=== PATIENT | male | born 1960 | race American Indian/Alaskan Native ===

== ENCOUNTER 2016-08-16 14:47 | Emergency (ER) | payer MEDICAID ==
[2016-08-16 15:24] LABS: Hematocrit 26.3 % (35.5-45.6); Hemoglobin 8.4 gm/dl (11.8-15.2); Mean Corpuscular HGB Conc 32 % (32-34); Mean Corpuscular Hemoglobin 26 pg (28-32); Mean Corpuscular Volume 82 fl (84-94); Platelet Count 137 K/mm3 (140-440); Red Blood Count 3.22 M/mm3 (3.65-5.03); White Blood Count 5.6 K/mm3 (4.5-11.0)
[2016-08-16 15:34] LABS: Red Cell Distribution Width 29.3 % (13.2-15.2)
[2016-08-16 15:44] LABS: Alanine Aminotransferase 37 units/L (7-56); Albumin 2.2 g/dL (3.9-5); Albumin/Globulin Ratio 0.4 %; Alkaline Phosphatase 136 units/L (35-129); Anion Gap 16 mmol/L; BUN/Creatinine Ratio 21.11; Blood Urea Nitrogen 19 mg/dL (9-20); Calcium 9.2 mg/dL (8.4-10.2); Carbon Dioxide 22 mmol/L (22-30); Glucose 98 mg/dL (75-100); Potassium 3.9 mmol/L (3.6-5.0); Sodium 134 mmol/L (137-145)
--- NOTE | 2016-08-16 15:49 | XRay Report ---
PORTABLE CHEST INDICATION: Hemoptysis. COMPARISON: None similar at this institution. FINDINGS: Portable, frontal chest radiograph demonstrates an asymmetric 1.3 cm nodular density at the left lung base projecting near the cardiac apex, not excluded for a lung nodule/mass, though may conceivably be a nipple shadow. However, another 1.3 cm right perihilar and a 0.6 cm left midlung nodular densities also suspected. Normal cardiomediastinal silhouette. No pleural effusions or CHF. Intact bones. CONCLUSION: Bilateral pulmonary nodules suspected, worrisome for metastatic disease. Please also correlate clinically, with prior chest imaging if available or further with chest CT, as warranted. Thank you for the opportunity to participate in this patient's care.
[2016-08-16 16:03] LABS: INR 1.28 (0.87-1.13)
[2016-08-16 16:04] LABS: Partial Thromboplastin Time 35.1 Sec. (24.2-36.6)
--- NOTE | 2016-08-16 16:26 | Emergency Department Report ---
ED General Adult HPI - General Chief complaint: Dyspnea/Respdistress Stated complaint: COUGHING UP BLOOD Time Seen by Provider: 08/16/16 15:06 Source: patient, EMS Mode of arrival: Stretcher Limitations: No Limitations - History of Present Illness Initial comments: 56-year-old male presents to the emergency department via EMS complaining of coughing up blood. Patient states he's been coughing up blood for approximately one month. He states he was recently diagnosed with throat cancer , but has not followed up. He states that he would like treatment at this time. He denies difficulty breathing. He also denies chest pain. There are no other complaints. -: Gradual, month(s) (1) Severity scale (0 -10): 0 Consistency: constant Improves with: none Worsens with: none Associated Symptoms: denies other symptoms - Related Data Allergies Allergy/AdvReac Type Severity Reaction Status Date / Time No Known Allergies Allergy Verified 08/16/16 14:59 ED Review of Systems ROS: Stated complaint: COUGHING UP BLOOD Other details as noted in HPI Comment: All other systems reviewed and negative Respiratory: cough, other (hemoptysis) ED Past Medical Hx - Past Medical History Previous Medical History?: Yes Hx Hypertension: Yes Hx Liver Disease: Yes (cirrhosis) Hx of Cancer: Yes (throat) - Surgical History Past Surgical History?: Yes Additional Surgical History: spine - Family History Family history: no significant - Social History Smoking Status: Former Smoker Substance Use Type: None ED Physical Exam - General Limitations: No Limitations General appearance: alert, in no apparent distress, other (patient is actively coughing on examination, patient is coughing up dark red blood and some clots. He is holding an emesis bag containing blood that measures approximately 1.5 inches in height.) - Head Head exam: Present: atraumatic, normocephalic - Eye Eye exam: Present: normal appearance, PERRL, EOMI - ENT ENT exam: Present: normal exam, normal orophraynx, mucous membranes moist - Neck Neck exam: Present: normal inspection, full ROM. Absent: tenderness - Respiratory Respiratory exam: Present: normal lung sounds bilaterally. Absent: respiratory distress - Cardiovascular Cardiovascular Exam: Present: normal rhythm, tachycardia, normal heart sounds - GI/Abdominal GI/Abdominal exam: Present: soft, normal bowel sounds. Absent: distended, tenderness - Extremities Exam Extremities exam: Present: normal inspection, full ROM. Absent: tenderness - Back Exam Back exam: Present: normal inspection, full ROM. Absent: tenderness - Neurological Exam Neurological exam: Present: alert, oriented X3. Absent: motor sensory deficit - Skin Skin exam: Present: warm, dry, intact ED Course Vital Signs 08/16/16 08/16/16 14:52 15:03 Temperature 98.0 F Pulse Rate 108 H Respiratory 20 18 Rate Blood Pressure 153/82 O2 Sat by Pulse 98 98 Oximetry ED Medical Decision Making - Lab Data Result diagrams: 08/16/16 15:00 08/16/16 15:00 - Radiology Data Radiology results: report reviewed, image reviewed Chest x-ray shows suspected bilateral pulmonary nodules, worrisome for metastatic disease. There is no other acute cardiopulmonary abnormality. - Medical Decision Making Lab and imaging results reviewed and discussed with the patient. Patient is to be admitted by the hospitalist for further evaluation. - Differential Diagnosis hemoptysis, anemia, throat cancer Critical care attestation.: If time is entered above; I have spent that time in minutes in the direct care of this critically ill patient, excluding procedure time. ED Disposition Clinical Impression: Massive hemoptysis Disposition: OP ADMIT IP TO THIS HOSP Is pt being admited?: Yes Condition: Stable Referrals: PRIMARY CARE, [Primary Care Provider] - 3-5 Days Time of Disposition: 16:26
[2016-08-16 16:30] LABS: Blastocytes % (Manual) 0 %; Hypochromasia 2+; Target Cells 1+
[2016-08-16 16:31] LABS: Anisocytosis 2+; Large Platelets 1+; Ovalocytes Few; Platelet Estimate Consistent w Auto
[2016-08-16 16:32] LABS: Diff Status Complete
--- NOTE | 2016-08-16 16:51 | Admit Criteria Form ---
Admission Criteria Documentation: PULMONARY DISEASE GRG Clinical Indications for Admission to Inpatient Care ( Place 'X' for any and all applicable criteria): Hospital admission is needed for appropriate care of the patient because of ANY ONE of the following(1): [ ]I. Impending or actual respiratory arrest ( Use Respiratory Failure Criteria for severe respiratory disease and long-term mechanical ventilation patients) (4) [ ]II. Severe airflow or ventilation abnormalities (not responsive to emergency and observation care treatment as appropriate) as indicated by ANY ONE of the following(5)(6)(7)(8) : [ ]a) PCO2 > 42 mm Hg (5.6 kPa) and pH < 7.35 (new) [ ]b) Documented PCO2 increase > 5 mm Hg (0.7 kPa) from disease baseline [ ]c) Airflow measurements[A] < 60% of previous best or predicted ( e.g., PEF <300 L/minute) despite intensive emergent treatment[B] [ ]d) Required respiratory treatments that are performable only in acute inpatient setting [ ]III. Severe respiratory findings (not responsive to emergency and observation care treatment as appropriate) including ANY ONE of the following(5)(8)(9): [ ]a) Respiratory distress as indicated by ALL of the following(5)(10): [ ]i) Patient with ANY ONE of the following: [ ]1) Dyspnea (difficulty breathing) [ ]2) Abnormal breathing pattern (eg, chest retractions) [ ]3) Tachypnea [ ]4) Other evidence of difficulty breathing [ ]ii) Evidence of respiratory compromise indicated by ANY ONE of the following: [ ]1) Hypoxemia [ ]2) Altered mental status [ ]3) Other evidence of respiratory compromise (eg, pulmonary edema on chest x-ray) [ ]b) Stridor [ ]c) Gross hemoptysis(11) [ ]d) Acute cyanosis [ ]IV. High-risk pulmonary infection as indicated by ANY ONE of the following( 19)(20)(21)(22): [ ]a) Temperature less than 95 degrees F(35 degrees C) or greater than 103.1 degrees F(39.5 degrees C) [ ]b) Hemodynamic instability that remains after emergency or observation level care (as appropriate) [ ]c) Immunocompromised patient (eg, AIDS, post transplant, neutropenic) [ ]d) History of severe COPD [ ]e) History of severely symptomatic congestive heart failure [ ]f) Other high-risk comorbidity (eg, poorly controlled diabetes, cirrhosis, chronic renal insufficiency) [ ]g) Hypoxemia (new) [ ]h) Outpatient, observation, or recovery facility therapy has failed, is not appropriate, or is not feasible [ ]V. Severe atelectasis or lung collapse(15)(16) [ ]. Tuberculosis requiring inpatient treatment as indicated by ANY ONE of the following(17)(18): [ ]a) New positive acid-fast bacilli sputum smear [ ]b) Positive acid-fast bacilli smear (under current treatment), with ANY ONE of the following: [ ]i) Unexposed household contacts [ ]ii) Infants or immunosuppressed household contacts [ ]iii) Patient unable or unwilling to avoid exposing others [ ]iv) Severe immunocompromised patient (eg, AIDS, post transplant, neutropenic) [ ]VII. Empyema or lung abscess(13)(14) [ ]VIII. Severe pulmonary arterial hypertension or pulmonary vascular disease requiring inpatient care indicated by ANY ONE of the following(24)(25): [ ]a) Initiation or change of vasodilators (IV, subcutaneous, or inhaled) or other vasoactive medications needed [ ]b) IV anticoagulation needed (eg, immediate anticoagulation necessary, alternatives not appropriate) [ ]c) Arterial or pulmonary artery catheter monitoring needed due to infusion or other treatment [ ]IX. Chronic lung disease with severe deterioration (not responsive to emergency and observation care treatment as appropriate) as indicated by ANY ONE of the following (6)(12): [ ]a) SaO2 5% below baseline in patient with chronic hypoxemia [ ]b) New requirement for supplemental oxygen to keep SaO2 at baseline or acceptable level [ ]c) Required supplemental oxygen performable only in acute inpatient setting [ ]d) Severe airflow or ventilation abnormalities [ ]e) Rapid rate of exacerbation onset [ ]f) Previously mobile patient unable to walk between rooms [ ]g) Inability to eat or sleep due to dyspnea [ ]h) Altered mental status [ ]X. Cystic fibrosis with severe deterioration as indicated by ANY ONE of the following(26)(27): [ ]a) Severe exacerbation that does not respond to intensified home therapy [ ]b) Pneumonia [ ]c) Hemoptysis [ ]d) Atelectasis [ ]e) Pneumothorax [ ]f) Respiratory failure [ ]g) Severe exacerbation with patient unable to perform prescribed treatments at home [ ]XI. Severe right heart failure as indicated by ANY ONE of the following(24) (25): [ ]a) Increasing organ failure (eg, liver congestion with significant and worsening or new elevation of transaminases) [ ]b) Anasarca [ ]c) Angina that requires inpatient care (eg, not treatable in emergency or observation level of care) [ ]d) Respiratory distress [ ]e) Syncope [ ]f) SBP < 90 mm Hg (new) [ ]XII. Injury requiring inpatient care (medical) as indicated by ANY ONE of the following(28): [ ]a) Significant inhalation injury (eg, smoke inhalation, other toxic inhalation) (29)(30)(31) [ ]b) Airway obstruction that remains or is unstable after emergency or observation level care(32) [ ]c) Severe pain requiring acute inpatient management [ ]d) Lung contusion [ ]e) Bronchial tree injury [ ]f) Air or fat emboli(33) [ ]g) Other injury not treatable in emergency or observation level care (eg, hemothorax) (34) [ X]XIII. Pulmonary hemorrhage or significant hemoptysis(11)(35)(36) [ ]XIV. Inpatient palliative care needed[C](37)(38)(39)(40) [ ]XV. Complications of lung transplant (eg, rejection, failure, respiratory infection) (23) [ ]XVI. Pulmonary Disease and ANY ONE of the following: [ ]a) General Admission Criteria [ ]b) Pediatric General Admission Criteria The original [facility] content created by [facility] has been revised. The portions of the content which have been revised are identified through the use of italic text or in bold, and [facility] has neither reviewed nor approved the modified material. All other unmodified content is copyright [facility]. Please see references footnoted in the original [facility] edition 2016 Admission Criteria Met: Yes
--- NOTE | 2016-08-16 17:00 | History and Physical Report ---
Medications and Allergies Allergies Allergy/AdvReac Type Severity Reaction Status Date / Time No Known Allergies Allergy Verified 08/16/16 14:59 Exam - Constitutional Vitals: Temp Pulse Resp BP Pulse Ox 98.0 F 108 H 18 153/82 98 08/16/16 14:52 08/16/16 14:52 08/16/16 15:03 08/16/16 14:52 08/16/16 15:03 Results - Labs CBC & Chem 7: 08/16/16 15:00 08/16/16 15:00 Labs: Abnormal lab results 08/16/16 08/16/16 08/16/16 Range/Units 15:00 15:00 15:40 RBC 3.22 L (3.65-5.03) M/mm3 Hgb 8.4 L (11.8-15.2) gm/dl Hct 26.3 L (35.5-45.6) % MCV 82 L (84-94) fl MCH 26 L (28-32) pg RDW 29.3 H (13.2-15.2) % Plt Count 137 L (140-440) K/mm3 Lymphocytes % (Manual) 13.0 L (13.4-35.0) % Monocytes % (Manual) 14.0 H (0.0-7.3) % Eosinophils % (Manual) 6.0 H (0.0-4.3) % Lymphocytes # (Manual) 0.7 L (1.2-5.4) K/mm3 PT 15.9 H (12.2-14.9) Sec. INR 1.28 H (0.87-1.13) Sodium 134 L (137-145) mmol/L Total Bilirubin 1.90 H (0.1-1.2) mg/dL AST 103 H (5-40) units/L Alkaline Phosphatase 136 H (35-129) units/L Albumin 2.2 L (3.9-5) g/dL
[2016-08-16] MEDS ORDERED: TYLENOL PO ONE (17:07)
--- NOTE | 2016-08-16 17:45 | Consultation ---
History of Present Illness - Reason for Consult Consult date: 08/16/16 Requesting physician: HUONG VOSS - History of Present Illness 56 YO Male with Malignant laryngeal cancer, Cirrhosis, Nicotine Dependence presents to ED for evaluation. Pt states that he has experienced hemoptysis for the past 4 days. Pt diagnosed with terminal cancer at [facility]. Pt denies Oncology f/u. Pt seen and evaluated in ED, and discussed treatment options. Pt medically optimized at time of exam and subsequently discharged home. Discussed hospice care for symptom management due to terminal prognosis. Past History Past Medical History: cancer Past Surgical History: Other (spine) Social history: smoking Family history: no significant family history (reviewed) Medications and Allergies Allergies Allergy/AdvReac Type Severity Reaction Status Date / Time No Known Allergies Allergy Verified 08/16/16 14:59 Home Medications Medication Instructions Recorded Confirmed Last Taken Type Unobtainable 08/16/16 08/16/16 Unknown History Review of Systems All systems: negative Constitutional: other (hemoptysis) Exam - Constitutional Vitals: Temp Pulse Resp BP Pulse Ox 98.0 F 108 H 18 153/82 98 08/16/16 14:52 08/16/16 14:52 08/16/16 15:03 08/16/16 14:52 08/16/16 15:03 General appearance: Present: no acute distress, well-nourished - EENT Eyes: Present: PERRL ENT: hearing intact, clear oral mucosa - Neck Neck: Present: supple, normal ROM - Respiratory Respiratory effort: normal Respiratory: bilateral: CTA - Cardiovascular Heart Sounds: Present: S1 & S2. Absent: rub, click - Extremities Extremities: pulses symmetrical, No edema Peripheral Pulses: within normal limits - Abdominal General gastrointestinal: Present: soft, non-tender, non-distended, normal bowel sounds Male genitourinary: Present: normal - Integumentary Integumentary: Present: clear, warm, dry - Musculoskeletal Musculoskeletal: gait normal, strength equal bilaterally - Psychiatric Psychiatric: appropriate mood/affect, intact judgment & insight - Neurologic Neurologic: CNII-XII intact, moves all extremities Results - Labs CBC & Chem 7: 08/16/16 15:00 08/16/16 15:00 Labs: Abnormal lab results 08/16/16 08/16/16 08/16/16 Range/Units 15:00 15:00 15:40 RBC 3.22 L (3.65-5.03) M/mm3 Hgb 8.4 L (11.8-15.2) gm/dl Hct 26.3 L (35.5-45.6) % MCV 82 L (84-94) fl MCH 26 L (28-32) pg RDW 29.3 H (13.2-15.2) % Plt Count 137 L (140-440) K/mm3 Lymphocytes % (Manual) 13.0 L (13.4-35.0) % Monocytes % (Manual) 14.0 H (0.0-7.3) % Eosinophils % (Manual) 6.0 H (0.0-4.3) % Lymphocytes # (Manual) 0.7 L (1.2-5.4) K/mm3 PT 15.9 H (12.2-14.9) Sec. INR 1.28 H (0.87-1.13) Sodium 134 L (137-145) mmol/L Total Bilirubin 1.90 H (0.1-1.2) mg/dL AST 103 H (5-40) units/L Alkaline Phosphatase 136 H (35-129) units/L Albumin 2.2 L (3.9-5) g/dL Assessment and Plan - Patient Problems (1) Laryngeal cancer Status: Acute Plan to address problem: Recommend hospice care, Home versus inpatient, pain control, supporitve care. (2) Hemoptysis Status: Acute Plan to address problem: secondary to laryngeal cancer.
[2016-08-17 01:41] VITALS: BP 112/72
== END 2016-08-16 19:30 | disposition home or self-care (01) ==
LOC: ED 14:47
DX: R04.2 Hemoptysis (principal); I10 Essential (primary) hypertension; Z87.891 Personal history of nicotine dependence; Z85.818 Personal history of malignant neoplasm of other sites of lip, oral cavity, and pharynx
CPT/HCPCS: 36415; 71010; 80053; 85007; 85025; 85610; 85730